=== PATIENT | female | born 1965 | race Caucasian/White ===

== ENCOUNTER 2022-04-25 11:23 | Emergency (ER) | payer BC, MEDICAID ==
[~2022-04-25] VITALS: Ht 157.5 cm; Wt 83.9 kg
[~2022-04-25 11:23] MED LIST: NABU-138 PO
[2022-04-25 11:31] VITALS: BP_SYST 151
[2022-04-25 13:08] LABS: BASOPHILS # (AUTO) 0.1 K/uL (0.0-0.2); BASOPHILS % (AUTO) 0.7 % (0.0-2.0); EOSINOPHILS # (AUTO) 0.2 K/uL (0.0-0.4); EOSINOPHILS % (AUTO) 2.2 % (0.0-4.0); HEMATOCRIT 39.5 % (36-48); HEMOGLOBIN 12.8 g/dL (12.0-16.0); LYMPHOCYTES # (AUTO) 2.6 K/uL (1.0-5.5); MEAN CORPUSCULAR HEMOGLOBIN 28 pg (27-31); MEAN CORPUSCULAR HGB CONC 33 % (32-36); MEAN CORPUSCULAR VOLUME 85 fL (79.0-98.0); MONOCYTES # (AUTO) 0.6 K/uL (0.0-1.0); MONOCYTES % (AUTO) 7.4 % (1.7-9.3); NEUTROPHILS # (AUTO) 4.3 K/uL (1.8-7.7); NEUTROPHILS % (AUTO) 55.7 % (40.0-70.0); PLATELET COUNT (AUTO) 237 K/uL (130-430); RED BLOOD CELL COUNT(AUTO) 4.67 MIL/uL (4.2-6.2); RED CELL DISTRIBUTION WIDTH 15.3 % (9.0-15.0); WHITE BLOOD COUNT (AUTO) 7.7 K/uL (4.8-10.8)
--- NOTE | 2022-04-25 13:08 | NUR ---
EKG COMPLETE PER MARGARITA ORTEGA.
[2022-04-25 13:25] VITALS: BP_SYST 138
[2022-04-25 13:25] LABS: ANION GAP 7 (5-15); CALCIUM 9.5 mg/dL (8.4-11.0); CHLORIDE 104 mmol/L (98-107); CREATININE 0.87 mg/dL (0.55-1.30); GLUCOSE 89 mg/dL (70-99); UREA NITROGEN, BLOOD 15 mg/dL (8-21)
[2022-04-25 13:26] LABS: GFR AFRICAN AMERICAN 86 mL/min (>90)
[2022-04-25 13:33] LABS: ALANINE AMINOTRANSFERASE 77 U/L (12-78); ASPARTATE AMINOTRANSFERASE 47 U/L (10-37); TOTAL BILIRUBIN 0.4 mg/dL (0.0-1.0)
--- NOTE | 2022-04-25 13:38 | NUR ---
Patient given written and verbal discharge instructions and verbalizes understanding. ER MD discussed with patient the results and treatment provided. Patient in stable condition. ID arm band removed. Patient educated on pain management and to follow up with PMD. Opportunity for questions provided and answered. Medication side effect fact sheet provided.
== END 2022-04-25 13:25 | disposition home or self-care (01) ==
LOC: SED 11:23
DX: R55 Syncope and collapse (principal); E11.9 Type 2 diabetes mellitus without complications; I10 Essential (primary) hypertension; Z79.899 Other long term (current) drug therapy
CPT/HCPCS: 36415; 70450-TC; 76376; 80053; 84484; 85025; 93005; 99285